=== PATIENT | female | born 1960 | race Caucasian/White ===

== ENCOUNTER 2018-02-06 16:54 | Emergency (ER) | payer OTHER ==
[2018-02-06 17:07] LABS: URINE PH (Dip) POC 5.5 (5.0-8.5)
[2018-02-06 17:07] LABS: URINE BLOOD (Dip) POC Trace-intact (NEGATIVE); URINE GLUCOSE (Dip) POC Negative (NEGATIVE); URINE KETONES (Dip) POC Trace (NEGATIVE); URINE LEUKOCYTE EST (Dip) POC Trace (NEGATIVE); URINE NITRITE (Dip) POC Negative (NEGATIVE); URINE TOTAL PROTEIN POC 1+ (NEGATIVE)
[2018-02-06] MEDS: CEPHALEXIN 500 MG CAP PO (17:24)
[2018-02-06] MEDS: NAPROXEN 500 MG TAB PO (17:24)
== END 2018-02-06 17:27 | disposition home or self-care (01) ==
LOC: FTE 16:54
DX: N39.0 Urinary tract infection, site not specified (principal); I10 Essential (primary) hypertension
CPT/HCPCS: 81003; 87086; 99283

== ENCOUNTER 2018-05-02 23:23 | Emergency (ER) | payer OTHER | END 2018-05-03 01:39 | disposition home or self-care (01) | LOC: FTE 23:23 | DX: S80.861A Insect bite (nonvenomous), right lower leg, initial encounter (principal); L08.9 Local infection of the skin and subcutaneous tissue, unspecified; W57.XXXA Bitten or stung by nonvenomous insect and other nonvenomous arthropods, initial encounter; Y92.9 Unspecified place or not applicable | CPT/HCPCS: 99284; Z7502 ==

== ENCOUNTER 2018-10-03 14:25 | Emergency (ER) | payer OTHER ==
[2018-10-03] MEDS: ONDANSETRON (ODT) 4 MG TAB ODT (16:58)
[2018-10-03] MEDS: HYDROCODONE/APAP (5/325) TAB PO ×2 (17:07)
== END 2018-10-03 17:16 | disposition home or self-care (01) ==
LOC: E/R 14:25
DX: S00.03XA Contusion of scalp, initial encounter (principal); S00.83XA Contusion of other part of head, initial encounter; I10 Essential (primary) hypertension; W18.39XA Other fall on same level, initial encounter; Y92.9 Unspecified place or not applicable
CPT/HCPCS: 70450; 70486; 99284-25